=== PATIENT | male | born 1955 | race Caucasian/White ===

== ENCOUNTER 2021-05-25 09:46 | Day surgery (SDC) | payer OTHER ==
[2021-05-21 13:53] LABS: Absolute Lymphocytes (CBC) 2.2 K/uL (0.7-4.9); Basophils % 0.4 % (0-1.3); Hematocrit 46.2 % (39.6-49.0); Lymphocytes % 32.1 % (15.3-44.8); MPV 8.1 fL (7.6-11.3); RBC Red Blood Cell Count 5.17 M/uL (4.33-5.43)
[2021-05-21 14:05] LABS: BUN Blood Urea Nitrogen 8 mg/dL (7-18); Bicarbonate 27 mmol/L (21-32); Glucose Level 393 mg/dL (74-106); Potassium 3.7 mmol/L (3.5-5.1); Sodium Level 140 mmol/L (136-145)
[2021-05-21 14:17] LABS: Protime INR 1.02
[~2021-05-25 09:46] MED LIST: NA CHLORIDE 0.9% 500 ML ONE
[2021-05-25] MEDS ORDERED: LIDOCAINE 1% 20 ML MDV ONE (09:59)
[2021-05-25] MEDS ORDERED: HEPA 1000U/500MLS 1,000 UNIT/500 ML BAG IV ONE (09:59)
[2021-05-25] MEDS ORDERED: MIDAZOLAM HCL 2 MG/2 ML INJ ONE ×2 (10:27→10:45)
[2021-05-25] MEDS ORDERED: FENTANYL CITR 100 MCG/2 ML ONE (10:27)
[2021-05-25] MEDS ORDERED: NA CHLORIDE 0.9% 0 ML ONE (10:28)
[2021-05-25] MEDS ORDERED: ATROPINE SULF 1 MG/10 ML SYR IV ONE (10:28)
--- NOTE | 2021-05-25 10:45 | RAD REPORT ---
EXAM DESCRIPTION: RAD - Chest Single View - 05/25/2021 10:07 am CLINICAL HISTORY: pre-op for heart cath Chest pain. COMPARISON: No comparisons FINDINGS: Portable technique limits examination quality. The lungs are grossly clear. The heart is normal in size. No displaced fractures. IMPRESSION: No acute intrathoracic process suspected.
[2021-05-25 12:30] VITALS: TEMP 97
[2021-05-25 13:38] VITALS: BP 162/62; O2SAT 97
--- NOTE | 2021-05-25 14:27 | OP ---
Surgeon: Velasquez Reese MD Celery Stripper: Rhiannon Rondon. Procedure: Admitted to my service as an outpatient on 05/25/2021. Reason For Admission: Unstable angina. Reason for the catheterization was unstable angina, Procedures: Left heart catheterization, selective coronary arteriogram. Procedure In Detail: Mr. Dickens was brought to the corn lab technician as an outpatient, prepped and draped in routine sterile fashion. Given Versed and fentanyl for sedation. A 6-Nepali sheath introduced in the right common femoral artery successfully using the Seldinger technique and 10 cc of Xylocaine. Angiography there was normal. StarClose was used to close the case. Zita catheter left and right were used to cannulate the left main and right main respectively. He had a normal right coronary ar lashawn without any stenosis. He was codominant. There was some minor plaquing and calcification in th e left main, LAD, and circumflex without any focal stenosis. There were no complications. Blood Loss: 5 cc. Anesthesia: Total conscious sedation was 45 minutes. Postoperative Diagnosis: Mild coronary artery disease. Plan: Plan is for medical therapy. The patient will be at bedrest for 2 hours after his procedure. He will go home after that and see me in the office in 2 weeks. I am going to suggest that we start statin. ELGIN/CARLOS Voice ID: [id number] Report ID: [id number]
--- NOTE | 2021-05-26 11:23 | EKG ---
Test Date: 2021-05-25 Test Time: 09:29:18 Information Systems Planner: LUCRECIA MEASUREMENT RESULTS: Intervals: Rate: 63 NV: 166 QRSD: 88 QT: 424 QTc: 433 [place]: P: 55 NV: 166 QRS: 22 T: 48 INTERPRETIVE STATEMENTS: Normal sinus rhythm Normal ECG No previous ECG available for comparison Electronically Signed On 05-26-21 11:20:31 ECONOMIC DEVELOPER by Velasquez Reese
== END 2021-05-25 13:39 | disposition home or self-care (01) ==
LOC: CCL 09:46
DX: I25.110 Atherosclerotic heart disease of native coronary artery with unstable angina pectoris (principal); I10 Essential (primary) hypertension; E11.9 Type 2 diabetes mellitus without complications; G47.33 Obstructive sleep apnea (adult) (pediatric); E66.9 Obesity, unspecified; Z68.31 Body mass index [BMI] 31.0-31.9, adult; F17.210 Nicotine dependence, cigarettes, uncomplicated; Z20.822 Contact with and (suspected) exposure to COVID-19; Z82.49 Family history of ischemic heart disease and other diseases of the circulatory system
CPT/HCPCS: 93005; 85025; 80048; 36415; 85610; 85730; 71045; 93454; U0003; C1893; J2250 ×2; J3010; J7040; J1644; J0583

== ENCOUNTER 2022-06-17 15:06 | Emergency (ER) | payer OTHER ==
[2022-06-17] MEDS ORDERED: HYDROCODONE/APAP 7.5/325 MG TAB ONE (16:49)
[2022-06-17] MEDS ORDERED: IBUPROFEN 400 MG TAB ONE (16:49)
--- NOTE | 2022-06-17 17:04 | RAD REPORT ---
EXAM DESCRIPTION: RAD - Knee Right 3 View - 06/17/2022 4:59 pm CLINICAL HISTORY: PAIN COMPARISON: No comparisons FINDINGS: No bone or joint abnormality is detected.
--- NOTE | 2022-06-17 17:38 | EDPHYS ---
Physician Documentation [facility] Name: Geovani Dickens Age: 66 yrs Sex: Male : 1955 Arrival Date: 06/17/2022 Time: 15:07 Bed DIS5 Private MD: ED Physician Raymond Guzmán HPI: 06/17 16:25 This 66 yrs old Male presents to ER via Wheelchair with complaints of Knee cp Pain. 16:25 The patient presents with an injury, pain, that is acute. The complaints affect the cp right knee. Context: resulted from a mis-step, while descending stairs, the patient can partially bear weight, the patient is able to ambulate, with moderate difficulty, Problem is a result from a previous injury: No. Onset: The symptoms/episode began/occurred today. 16:25 Patient reports he was going down stairs when he felt right knee buckle and give out. cp C/o pain to back of knee since. Historical: - Allergies: 15:47 No Known Allergies; kb3 - PMHx: 15:47 Hypertensive disorder; NIDDM; kb3 - PSHx: 15:47 None; kb3 - Immunization history:: Adult Immunizations up to date, Client reports having NOT received the Covid vaccine. Last tetanus immunization: unknown. - Social history:: Smoking status: Patient denies any tobacco usage or history of. ROS: 16:30 MS/extremity: Positive for pain, tenderness, of the right knee. cp 16:30 Constitutional: Negative for body aches, chills, fever, poor PO intake. cp Exam: 16:40 Constitutional: The patient appears in no acute distress, alert, awake, non-toxic, well cp developed, well nourished. 16:40 Head/Face: Normocephalic, atraumatic. cp 16:40 Chest/axilla: Inspection: normal. 16:40 Cardiovascular: Rate: normal. 16:40 Respiratory: the patient does not display signs of respiratory distress, Respirations: normal. 16:40 Abdomen/GI: Exam negative for discomfort, distension, guarding, Inspection: abdomen appears normal. 16:40 Back: pain, is absent, ROM is normal. 16:40 Musculoskeletal/extremity: Extremities: grossly normal except: noted in the right knee: cp pain and tenderness noted posterior aspect of knee, pain with ROM, no swelling and/or effusion noted, overlying skin warm and dry. Vital Signs: 15:45 BP 144 / 57; Pulse 70; Resp 20; Temp 98.7; Pulse Ox 96% ; Weight 95.71 kg; Height 5 ft. kb3 9 in. (175.26 cm); Pain 2/10; 15:45 Body Mass Index 31.16 (95.71 kg, 175.26 cm) kb3 MDM: 15:54 Patient medically screened. cp 17:00 Differential diagnosis: dislocation, closed fracture, effusion, ligament injury. cp 17:37 Data reviewed: vital signs, nurses notes, radiologic studies, plain films. cp 17:37 Test interpretation: by ED physician or midlevel provider: plain radiologic studies. cp Counseling: I had a detailed discussion with the patient and/or guardian regarding: the historical points, exam findings, and any diagnostic results supporting the discharge/admit diagnosis, radiology results, to return to the emergency department if symptoms worsen or persist or if there are any questions or concerns that arise at home. Response to treatment: the patient's symptoms have markedly improved after treatment, and as a result, I will discharge patient. ED course: VSS. Recommend RICE. Patient has crutches to use and knee brace to wear. Has seen DR Reagan in the past for left knee pain. Recommend f/u with orth. 06/17 16:00 Order name: XRAY Knee RIGHT 3 view; Complete Time: 17:11 06/17 17:11 Interpretation: Report reviewed. cp Administered Medications: 16:50 Drug: Ibuprofen 800 mg Route: PO; ss 17:56 Follow up: Response: No adverse reaction ss 16:50 Drug: Hydrocodone-Acetaminophen (7.5 mg-325 mg) 1 tabs Route: PO; ss 17:56 Follow up: Response: No adverse reaction ss Disposition Summary: 06/17/22 17:37 Discharge Ordered Location: Home cp Problem: new cp Symptoms: have improved cp Condition: Stable cp Diagnosis - Pain in right knee cp Followup: cp - With: Luis A Reagan MD - When: 1 week - Reason: Recheck today's complaints Discharge Instructions: - Discharge Summary Sheet cp - Elastic Bandage and RICE Therapy cp - How to Use a Knee Brace cp - Acute Knee Pain, Adult cp Forms: - Medication Reconciliation Form cp - Thank You Letter cp - Antibiotic Education cp - Prescription Opioid Use cp Prescriptions: - Diclofenac Sodium 75 mg Oral Tablet Sustained Release - take 1 tablet by ORAL route 2 times per day; 30 tablet; Refills: 0, Product cp Selection Permitted Addendum: 06/21/2022 13:54 Co-signature as Attending Physician, Raymond Guzmán MD. r n Signatures: Dispatcher [employer] EDIN Raymond Guzmán MD MD rn Smirch, Shelby, RN RN ss Dario Blackwell PA PA cp Cat Montgomery RN RN kb3 Corrections: (The following items were deleted from the chart) 06/17 17:46 17:24 Crutches ordered. cp cp 17:56 17:24 Rony wrap-joint ordered. cp ss 06/18 02:11 06/17 16:05 This 66 yrs old Male presents to ER via Wheelchair with complaints cp of Knee Pain. cp
--- NOTE | 2022-06-17 17:38 | ER ---
Nurse's Notes [facility] Name: Geovani Dickens Age: 66 yrs Sex: Male : 1955 Arrival Date: 06/17/2022 Time: 15:07 Bed DIS5 Private MD: Diagnosis: Pain in right knee Presentation: 06/17 15:45 Chief complaint: Patient states: Pt reports he took a step and suddenly felt a tearing kb3 pain in his posterior right knee. Denies twisting or falling. Coronavirus screen: Vaccine status: Patient reports being unvaccinated. Client denies travel out of the [place] in the last 14 days. Ebola Screen: Patient negative for fever greater than or equal to 101.5 degrees Fahrenheit, and additional compatible Ebola Virus Disease symptoms Patient denies exposure to infectious person. Patient denies travel to an Ebola-affected area in the 21 days before illness onset. Initial Sepsis Screen: Does the patient meet any 2 criteria? No. Patient's initial sepsis screen is negative. Does the patient have a suspected source of infection? No. Patient's initial sepsis screen is negative. Risk Assessment: Do you want to hurt yourself or someone else? Patient reports no desire to harm self or others. Onset of symptoms was June 17, 2022 at 14:00. 15:45 Method Of Arrival: Wheelchair kb3 15:45 Acuity: LASHELL 4 kb3 Triage Assessment: 15:47 General: Appears in no apparent distress. Behavior is calm, cooperative. Pain: kb3 Complains of pain in posterior aspect of right knee and right knee Pain does not radiate. Pain. Historical: - Allergies: 15:47 No Known Allergies; kb3 - PMHx: 15:47 Hypertensive disorder; NIDDM; kb3 - PSHx: 15:47 None; kb3 - Immunization history:: Adult Immunizations up to date, Client reports having NOT received the Covid vaccine. Last tetanus immunization: unknown. - Social history:: Smoking status: Patient denies any tobacco usage or history of. Screenin:56 Abuse screen: Denies threats or abuse. Denies injuries from another. Nutritional ss screening: No deficits noted. Tuberculosis screening: Never had TB. Fall Risk None identified. Assessment: 17:56 General: Appears in no apparent distress. comfortable, Behavior is calm, cooperative. ss Pain: Complains of pain in right knee. Neuro: Level of Consciousness is awake, alert, obeys commands, Oriented to person, place, time, situation. Cardiovascular: Capillary refill is brisk in bilateral toes. Respiratory: Airway is patent Respiratory effort is even, unlabored, Respiratory pattern is regular, symmetrical. Derm: Skin is intact, is healthy with good turgor, Skin is dry, Skin is pink, warm \T\ dry. normal. Vital Signs: 15:45 BP 144 / 57; Pulse 70; Resp 20; Temp 98.7; Pulse Ox 96% ; Weight 95.71 kg; Height 5 ft. kb3 9 in. (175.26 cm); Pain 2/10; 15:45 Body Mass Index 31.16 (95.71 kg, 175.26 cm) kb3 ED Course: 15:07 Patient arrived in ED. rg4 15:12 Dario Blackwell PA is PHCP. cp 15:12 Raymond Guzmán MD is Attending Physician. cp 15:47 Triage completed. kb3 15:47 Arm band placed on right wrist. kb3 16:50 Isabela Wright, NEGRO is Primary Nurse. ss 17:00 XRAY Knee RIGHT 3 view In Process Unspecified. EDMS 17:37 Luis A Reagan MD is Referral Physician. cp 17:56 Patient has correct armband on for positive identification. ss 17:56 No provider procedures requiring assistance completed. Patient did not have IV access ss during this emergency room visit. Administered Medications: 16:50 Drug: Ibuprofen 800 mg Route: PO; ss 17:56 Follow up: Response: No adverse reaction ss 16:50 Drug: Hydrocodone-Acetaminophen (7.5 mg-325 mg) 1 tabs Route: PO; ss 17:56 Follow up: Response: No adverse reaction ss Medication: 17:56 VIS not applicable for this client. ss Outcome: 17:37 Discharge ordered by . cp 17:56 Discharged to home via wheelchair. ss 17:56 Condition: good 17:56 Discharge instructions given to patient, family, Instructed on discharge instructions, follow up and referral plans. medication usage, Demonstrated understanding of instructions, follow-up care, medications, Prescriptions given X 1. 17:57 Patient left the ED. ss Signatures: Dispatcher [employer] EDNJ Isabela Wright RN RN ss Dario Blackwell PA PA cp Garcia, Rubi rg4 Cat Montgomery, RN RN kb3
[2022-06-17 18:15] VITALS: BP 144/57; TEMP 98.7; O2SAT 96
== END 2022-06-17 17:57 | disposition home or self-care (01) ==
LOC: ER 15:06
DX: M25.561 Pain in right knee (principal)
CPT/HCPCS: 99283

== ENCOUNTER 2022-11-24 04:32 | Emergency (ER) | payer OTHER ==
[2022-11-24] MEDS ORDERED: NA CHLORIDE 0.9% 1,000 ML ONE (06:25)
[2022-11-24] MEDS ORDERED: predniSONE 20 MG TAB ONE (06:25)
[2022-11-24] MEDS ORDERED: CEFTRIAXONE 1000 MG/VIAL ONE (06:25)
[2022-11-24] MEDS ORDERED: METHYLPREDNISOLONE 125 MG INJ ONE ×2 (06:25→06:34)
[2022-11-24] MEDS ORDERED: FAMOTIDINE 20 MG/2 ML VIAL IV ONE (06:25)
[2022-11-24 06:31] LABS: Absolute Lymphocytes (CBC) 2.9 K/uL (0.7-4.9); Hematocrit 45.6 % (39.6-49.0); Lymphocytes % 27.3 % (15.3-44.8); MPV 7.7 fL (7.6-11.3); RBC Red Blood Cell Count 5.12 M/uL (4.33-5.43)
[2022-11-24 06:45] LABS: Albumin 3.4 g/dL (3.4-5.0); Bilirubin Total 0.4 mg/dL (0.2-1.0); Potassium 3.2 mEq/L (3.5-5.1); Protein, Total 6.7 g/dL (6.4-8.2)
--- NOTE | 2022-11-24 06:51 | ER ---
Nurse's Notes [facility] Name: Geovani Dickens Age: 67 yrs Sex: Male : 1955 Arrival Date: 11/24/2022 Time: 04:32 Bed 5 Private MD: Diagnosis: Adverse effect of unspecified drugs, medicaments and biological substances;Allergy status to unspecified drugs, medicaments and biological substances status;Oral mucositis (ulcerative);Other disturbances of oral epithelium, including tongue;Other lesions of oral mucosa;Hypokalemia Presentation: 11/24 04:44 Chief complaint: Patient states: mouth eye throat pain and swelling seen at [facility] treated for allergic reaction pt reports no improvement white discoloration noted to underside of tongue. Coronavirus screen: Vaccine status: Patient reports being unvaccinated. Ebola Screen: Patient negative for fever greater than or equal to 101.5 degrees Fahrenheit, and additional compatible Ebola Virus Disease symptoms. Initial Sepsis Screen: Does the patient meet any 2 criteria? No. Patient's initial sepsis screen is negative. Does the patient have a suspected source of infection? No. Patient's initial sepsis screen is negative. Risk Assessment: Do you want to hurt yourself or someone else? Patient reports no desire to harm self or others. 04:44 Method Of Arrival: Ambulatory 04:44 Acuity: LASHELL 3 kl Triage Assessment: 04:46 General: Appears uncomfortable, well groomed, well developed, Behavior is calm, kl cooperative. Pain: Complains of pain in throat mouth jawline. EENT: Eyes are tearing on inner aspect of conjunctiva of left eye Oral mucosa is moist. Poor dentition noted. Reports difficulty swallowing pain. Neuro: No deficits noted. Cardiovascular: No deficits noted. Respiratory: No deficits noted. GI: No deficits noted. No signs and/or symptoms were reported involving the gastrointestinal system. : No deficits noted. Historical: - Allergies: 04:46 Naproxen; kl - PMHx: 04:46 Hypertensive disorder; NIDDM; kl - Immunization history:: Adult Immunizations not up to date. - Social history:: Smoking status: Patient denies any tobacco usage or history of. Screenin:48 [facility] ED Fall Risk Assessment (Adult) History of falling in the last 3 months, kl including since admission No falls in past 3 months (0 pts) Confusion or Disorientation No (0 pts) Intoxicated or Sedated No (0 pts) Impaired Gait No (0 pts) Mobility Assist Device Used No (0 pt) Altered Elimination No (0 pt) Score/Fall Risk Level 0 - 2 = Low Risk Oriented to surroundings, Maintained a safe environment. Abuse screen: Denies threats or abuse. Nutritional screening: No deficits noted. Tuberculosis screening: No symptoms or risk factors identified. Assessment: 04:48 Respiratory: Airway is patent Trachea midline Respiratory effort is even, unlabored, kl Breath sounds are clear bilaterally. 04:48 EENT: Throat is pink. j Vital Signs: 04:44 BP 176 / 89; Pulse 84; Resp 18; Temp 98.2(TE); Pulse Ox 94% on R/A; Weight 96.16 kg kl (R); Height 5 ft. 9 in. ; Pain 8/10; 05:30 BP 169 / 78; Pulse 72; Resp 18; Pulse Ox 93% ; j7 06:33 BP 170 / 81; Pulse 70; Resp 16; Pulse Ox 96% ; jj7 07:12 BP 175 / 82; Pulse 73; Resp 17; Pulse Ox 95% ; jj7 04:44 Body Mass Index 31.31 (96.16 kg, 175.26 cm) 04:44 Pain Scale: Adult ED Course: 04:36 Patient arrived in ED. ja2 04:46 Triage completed. 04:48 Patient has correct armband on for positive identification. Call light in reach. Side kl rails up X2. Pulse ox on. NIBP on. 04:48 Arm band placed on right wrist. Patient placed in an exam room, in the treatment room, j on a stretcher. 05:18 Bentley Rondon RN is Primary Nurse. j7 06:00 Dario Robb MD is Attending Physician. ching 06:19 Inserted saline lock: 20 gauge in right antecubital area, using aseptic technique. as6 Blood collected. 06:20 CBC with Diff Sent. as6 06:20 Comprehensive Metabolic Panel Sent. as6 06:50 Arpan Molina DDS is Referral Physician. ching 07:17 No provider procedures requiring assistance completed. IV discontinued, intact, jj7 bleeding controlled, No redness/swelling at site. Pressure dressing applied. Administered Medications: 06:30 Drug: NS 0.9% IV 1000 ml Route: IV; Rate: 1 bolus; Site: right antecubital; jj7 07:00 Follow up: IV Status: Completed infusion; IV Intake: 500ml jj7 06:30 Drug: Rocephin IV 1 grams Route: IV; Rate: per protocol; Site: right antecubital; jj7 07:00 Follow up: IV Status: Completed infusion jj7 06:31 Drug: MethylPrednisoLONE IVP 125 mg Route: IVP; Site: right antecubital; jj7 07:05 Follow up: Response: No adverse reaction jj7 06:31 Drug: Famotidine IVP 40 mg Route: IVP; Site: right antecubital; jj7 07:05 Follow up: Response: No adverse reaction jj7 06:31 Drug: predniSONE PO 40 mg Route: PO; jj7 07:03 Follow up: Response: No adverse reaction jj7 07:03 Drug: GI Cocktail without - (Maalox PO Suspension 30 ml, Lidocaine Mucous jj7 Membrane Liquid 2 % 15 ml) Route: PO; 07:04 Follow up: Response: No adverse reaction jj7 07:03 Drug: Potassium PO Effervescent Tablet 25 mEq Route: PO; jj7 07:05 Follow up: Response: No adverse reaction jj7 07:14 Drug: Mupirocin Topical Ointment 2 % 1 application Route: Topical; Site: face; jj7 Medication: 07:18 VIS not applicable for this client. jj7 Intake: 07:00 IV: 500ml; Total: 500ml. jj7 Outcome: 06:51 Discharge ordered by MD. flower 07:17 Discharged to home ambulatory. jj7 07:17 Condition: good 07:17 Discharge instructions given to patient, Instructed on discharge instructions, follow up and referral plans. medication usage, Demonstrated understanding of instructions, follow-up care, medications, Prescriptions given X 6 07:20 Patient left the ED. jj7 Signatures: Dorota Leo RN Dario Lynn MD MD cha Alexander, Jessica ja2 Slawson, Ashby, RN RN as6 Bentley Rondon RN RN jj7
--- NOTE | 2022-11-24 06:51 | EDPHYS ---
Physician Documentation [facility] Name: Geovani Dickens Age: 67 yrs Sex: Male : 1955 Arrival Date: 11/24/2022 Time: 04:32 Bed 5 Private MD: ED Physician Dario Robb HPI: 11/24 06:07 This 67 yrs old Male presents to ER via Ambulatory with complaints of Eye ching Problem, Sore Throat, Lips Swelling. 06:07 The patient is experiencing pain, redness, The patient sustained None. Onset: The ching symptoms/episode began/occurred 3 day(s) ago. Duration: the symptoms are continuous. Aggravated by nothing. Alleviated by nothing. Associated signs and symptoms: Pertinent positives:. Patient wears glasses. Severity of symptoms: At their worst the symptoms were moderate in the emergency department the symptoms are unchanged. The patient has not experienced similar symptoms in the past. Historical: - Allergies: 04:46 Naproxen; kl - PMHx: 04:46 Hypertensive disorder; NIDDM; kl - Immunization history:: Adult Immunizations not up to date. - Social history:: Smoking status: Patient denies any tobacco usage or history of. ROS: 06:09 Constitutional: Negative for fever, chills, and weight loss, Neck: Negative for injury, ching pain, and swelling, Cardiovascular: Negative for chest pain, palpitations, and edema, Respiratory: Negative for shortness of breath, cough, wheezing, and pleuritic chest pain, Abdomen/GI: Negative for abdominal pain, nausea, vomiting, diarrhea, and constipation, Back: Negative for injury and pain, : Negative for injury, bleeding, discharge, and swelling, MS/Extremity: Negative for injury and deformity, Neuro: Negative for headache, weakness, numbness, tingling, and seizure, Psych: Negative for depression, anxiety, suicide ideation, homicidal ideation, and hallucinations, Allergy/Immunology: Negative for hives, rash, and allergies, Endocrine: Negative for neck swelling, polydipsia, polyuria, polyphagia, and marked weight changes, Hematologic/Lymphatic: Negative for swollen nodes, abnormal bleeding, and unusual bruising. 06:09 Skin: Positive for erythema, rash, swelling. Exam: 06:09 Constitutional: This is a well developed, well nourished patient who is awake, alert, ching and in no acute distress. ENT: Nares patent. No nasal discharge, no septal abnormalities noted. Tympanic membranes are normal and external auditory canals are clear. Oropharynx with no redness, swelling, or masses, exudates, or evidence of obstruction, uvula midline. Mucous membranes moist. Neck: Trachea midline, no thyromegaly or masses palpated, and no cervical lymphadenopathy. Supple, full range of motion without nuchal rigidity, or vertebral point tenderness. No Meningismus. Chest/axilla: Normal chest wall appearance and motion. Nontender with no deformity. No lesions are appreciated. Cardiovascular: Regular rate and rhythm with a normal S1 and S2. No gallops, murmurs, or rubs. Normal PMI, no JVD. No pulse deficits. Respiratory: Lungs have equal breath sounds bilaterally, clear to auscultation and percussion. No rales, rhonchi or wheezes noted. No increased work of breathing, no retractions or nasal flaring. Abdomen/GI: Soft, non-tender, with normal bowel sounds. No distension or tympany. No guarding or rebound. No evidence of tenderness throughout. Back: No spinal tenderness. No costovertebral tenderness. Full range of motion. Male : Normal genitalia with no discharge or lesions. Skin: Warm, dry with normal turgor. Normal color with no rashes, no lesions, and no evidence of cellulitis. MS/ Extremity: Pulses equal, no cyanosis. Neurovascular intact. Full, normal range of motion. Neuro: Awake and alert, GCS 15, oriented to person, place, time, and situation. Cranial nerves II-XII grossly intact. Motor strength 5/5 in all extremities. Sensory grossly intact. Cerebellar exam normal. Normal gait. Psych: Awake, alert, with orientation to person, place and time. Behavior, mood, and affect are within normal limits. 06:09 Head/face: Noted is rash. 06:09 ENT: Mouth: Oral mucosa: moist, noted to have obvious stomatitis, noted to have ulceration(s), Gums: noted to have cellulitis, Tongue: tender, displays stomatitis. Vital Signs: 04:44 BP 176 / 89; Pulse 84; Resp 18; Temp 98.2(TE); Pulse Ox 94% on R/A; Weight 96.16 kg kl (R); Height 5 ft. 9 in. ; Pain 8/10; 05:30 BP 169 / 78; Pulse 72; Resp 18; Pulse Ox 93% ; jj7 06:33 BP 170 / 81; Pulse 70; Resp 16; Pulse Ox 96% ; j7 07:12 BP 175 / 82; Pulse 73; Resp 17; Pulse Ox 95% ; jj7 04:44 Body Mass Index 31.31 (96.16 kg, 175.26 cm) kl 04:44 Pain Scale: Adult kl MDM: 06:00 Patient medically screened. [facility] 06:12 Differential diagnosis: allergic reaction. Data reviewed: vital signs, nurses notes, [facility] lab test result(s). Consideration of Admission/Observation Escalation of care including admission/observation considered. I considered the following discharge prescriptions or medication management in the emergency department Medications were administered in the Emergency Department. See MAR. Test considered but Not performed: CT: no ct. Historians other than the Patient: Spouse/Significant Other: informed. Care significantly affected by the following chronic conditions: Diabetes, Hypertension. 11/24 06:07 Order name: CBC with Diff; Complete Time: 06:43 [facility] 11/24 06:07 Order name: Comprehensive Metabolic Panel; Complete Time: 06:48 [facility] 11/24 06:49 Order name: PO challenge: gatorade; Complete Time: 07:03 [facility] Administered Medications: 06:30 Drug: NS 0.9% IV 1000 ml Route: IV; Rate: 1 bolus; Site: right antecubital; j 07:00 Follow up: IV Status: Completed infusion; IV Intake: 500ml j 06:30 Drug: Rocephin IV 1 grams Route: IV; Rate: per protocol; Site: right antecubital; j 07:00 Follow up: IV Status: Completed infusion j7 06:31 Drug: MethylPrednisoLONE IVP 125 mg Route: IVP; Site: right antecubital; jj7 07:05 Follow up: Response: No adverse reaction j7 06:31 Drug: Famotidine IVP 40 mg Route: IVP; Site: right antecubital; j7 07:05 Follow up: Response: No adverse reaction j7 06:31 Drug: predniSONE PO 40 mg Route: PO; jj7 07:03 Follow up: Response: No adverse reaction jj7 07:03 Drug: GI Cocktail without - (Maalox PO Suspension 30 ml, Lidocaine Mucous jj7 Membrane Liquid 2 % 15 ml) Route: PO; 07:04 Follow up: Response: No adverse reaction jj7 07:03 Drug: Potassium PO Effervescent Tablet 25 mEq Route: PO; jj7 07:05 Follow up: Response: No adverse reaction jj7 07:14 Drug: Mupirocin Topical Ointment 2 % 1 application Route: Topical; Site: face; jj7 Disposition Summary: 11/24/22 06:51 Discharge Ordered Location: Home ching Problem: new ching Symptoms: have improved ching Condition: Stable ching Diagnosis - Adverse effect of unspecified drugs, medicaments and biological substances ching - Allergy status to unspecified drugs, medicaments and biological substances status ching - Oral mucositis (ulcerative) ching - Other disturbances of oral epithelium, including tongue ching - Other lesions of oral mucosa ching - Hypokalemia ching Followup: ching - With: Private Physician - When: 2 - 3 days - Reason: Recheck today's complaints, Continuance of care, Re-evaluation by your physician Followup: ching - With: - When: 2 - 3 days - Reason: Recheck today's complaints, Re-evaluation by your physician Discharge Instructions: - Discharge Summary Sheet ching - Potassium Content of Foods ching - Drug Allergy, Wrfe-ap-Xmeg ching - Drug Allergy ching - Mouth Laceration, Vsgh-gv-Rety ching - Jeffery-Alcon Syndrome ching - Hypokalemia [facility] Forms: - Medication Reconciliation Form ching - Thank You Letter ching - Antibiotic Education ching - Prescription Opioid Use [facility] Prescriptions: - Maalox Maximum Strength 400-400-40 mg/5 mL Oral suspension - take 15 milliliter by ORAL route 4 times per day; 250 milliliter; Refills: 0, [facility] Product Selection Permitted - Centany 2 % Topical ointment - apply 1 application by TOPICAL route 4 times per day; 15 gram tube; Refills: 0, [facility] Product Selection Permitted - Augmentin 875-125 mg Oral Tablet - take 1 tablet by ORAL route every 12 hours for 10 days; 20 tablet; Refills: 0, [facility] Product Selection Permitted - Benadryl 25 mg Oral Capsule - take 2 capsule by ORAL route every 6 hours As needed; 50 tablet; Refills: 0, [facility] Product Selection Permitted - Pepcid 20 mg Oral Tablet - take 1 tablet by ORAL route every 12 hours for 21 days; 42 tablet; Refills: 0, ching Product Selection Permitted - Prednisone 20 mg Oral Tablet - take 2 tablets by ORAL route once daily for 5 days; 10 tablet; Refills: 0, ching Product Selection Permitted Signatures: Dispatcher [employer] Dorota Link, RN Dario Lynn MD MD cha Johnson, Juwairiyah, RN RN jj7
[2022-11-24] MEDS ORDERED: MAGNES/ALUMIN/SIMET 30ML UCUP ONE (07:03)
[2022-11-24] MEDS ORDERED: MUPIROCIN 2% OINT 22GM TUBE TOP ONE (07:04)
[2022-11-24] MEDS ORDERED: LIDOCAINE VISCOUS 2% SOLN 15 ML UDC ONE (07:04)
[2022-11-24] MEDS ORDERED: POTASSIUM 25 MEQ EFFERV TAB ONE (07:04)
[2022-11-24 07:30] VITALS: TEMP 98.2
[2022-11-24 07:47] VITALS: BP 175/82; O2SAT 95
== END 2022-11-24 07:20 | disposition home or self-care (01) ==
LOC: ER 04:32
DX: K12.30 Oral mucositis (ulcerative), unspecified (principal); K13.79 Other lesions of oral mucosa; K13.29 Other disturbances of oral epithelium, including tongue; E87.6 Hypokalemia; T50.905A Adverse effect of unspecified drugs, medicaments and biological substances, initial encounter; Z88.6 Allergy status to analgesic agent; E11.9 Type 2 diabetes mellitus without complications; I10 Essential (primary) hypertension
CPT/HCPCS: 96365; 85025; 36415; 80053; 96375; 99284; J7512; J2930; J7030; J0696

== ENCOUNTER 2023-11-19 15:12 | Observation (INO) | payer OTHER ==
--- OUTSIDE RECORDS SUMMARY | 2023-11-19 15:16 | XMS REPORT | Continuity of Care Document ---
Author Name Unknown Address [address] [place] [address]. [address] [id number] [facility] Address [address] [facility]. [address] [place] [address] Care Team Providers Care Search Marketing Coordinator Name Role Phone Unavailable Unavailable Unavailable Encounters Start Date/Time End Date/Time Encounter Type Admission Type Attending Clinicians Care Facility Care Department Encounter ID Source 2022-11-29 09:05:02 [id number] [facility]
[2023-11-19 16:35] LABS: Absolute Basophils 0.1 K/uL (0-0.5); Absolute Lymphocytes (CBC) 1.6 K/uL (0.7-4.9); Absolute Monocytes 0.6 K/uL (0.1-1.3); Absolute Neutrophil 6.3 K/uL (1.8-8.0); Basophils % 0.7 % (0-1.3); Eosinophils % 0.6 % (0-4.4); Hematocrit 45.8 % (39.6-49.0); Hemoglobin 15.7 g/dL (13.6-17.9); Lymphocytes % 18.6 % (15.3-44.8); MCH 30.4 pg (27.0-35.0); MCHC 34.3 g/dL (32.0-36.0); MCV 88.6 fL (80-100); MPV 8.5 fL (7.6-11.3); Monocytes % 6.8 % (3.3-12.3); Neutrophils % 73.3 % (41.7-73.7); Platelets 260 thou/uL (152-406); RBC Red Blood Cell Count 5.18 M/uL (4.33-5.43)
[2023-11-19 16:49] LABS: PT Prothrombin Time 11.5 SECONDS (9.5-12.5); Protime INR 1.05
--- NOTE | 2023-11-19 16:57 | RAD REPORT ---
EXAM DESCRIPTION: CT - Head Brain Wo Cont - 11/19/2023 4:40 pm CLINICAL HISTORY: Syncope COMPARISON: none TECHNIQUE: Computed axial tomography of the head was obtained. IV contrast was not requested. All CT scans are performed using dose optimization technique as appropriate and may include automated exposure control or mA/KV adjustment according to patient size. FINDINGS: An intracranial bleed is not seen The ventricles are normal in caliber No significant hypodense areas within the brain visualized No extra-axial fluid collection is noted. Fluid within the sinuses/ mastoids is not seen IMPRESSION: No acute intracranial abnormality is seen If patient's symptoms persist MRI of the brain would be recommended
[2023-11-19 17:09] LABS: Albumin 3.6 g/dL (3.4-5.0); Albumin/Globulin Ratio 1.2 (1.1-1.8); Anion Gap 12.7 mEq/L (5.0-15.0); Bilirubin Direct 0.2 mg/dL (0-0.2); Bilirubin Indirect, Calculated 0.6 mg/dL (0.2-0.8); Bilirubin Total 0.8 mg/dL (0.2-1.0); Globulin 3.1 g/dL (2.3-3.5); Magnesium 2.2 mg/dL (1.6-2.4); Potassium 3.7 mEq/L (3.5-5.1); Protein, Total 6.7 g/dL (6.4-8.2); Troponin High Sensitivity 3.8 pg/mL (<58.9)
--- NOTE | 2023-11-19 17:23 | RAD REPORT ---
EXAM DESCRIPTION: [place] Single View11/19/2023 5:00 pm CLINICAL HISTORY: Chest pain COMPARISON: 2020 FINDINGS: The lungs appear clear of acute infiltrate. The heart is normal size IMPRESSION: No acute abnormalities displayed
--- NOTE | 2023-11-19 17:27 | ER ---
Nurse's Notes [facility] Name: Geovani Dickens Age: 68 yrs Sex: Male : 1955 Arrival Date: 11/19/2023 Time: 15:12 Bed 7 Private MD: Diagnosis: Acute kidney failure, unspecified;Type 2 diabetes mellitus with hyperglycemia Presentation: 11/18 15:25 Note Wants to use restroom before triage. nj1 15:30 Chief complaint: Patient states: "feel like im going to pass out" Was eating lunch and nj1 at the end started having neck pain. Coronavirus screen: Vaccine status: Patient reports being unvaccinated. Ebola Screen: Patient denies travel to an Ebola-affected area in the 21 days before illness onset. Initial Sepsis Screen: Does the patient meet any 2 criteria? HR > 90 bpm. No. Patient's initial sepsis screen is negative. Does the patient have a suspected source of infection? No. Patient's initial sepsis screen is negative. Risk Assessment: Do you want to hurt yourself or someone else? Patient reports no desire to harm self or others. Onset of symptoms was November 19, 2023. 15:30 Method Of Arrival: Wheelchair nj1 15:30 Acuity: LASHELL 3 nj1 Triage Assessment: 15:34 General: Appears in no apparent distress. comfortable, Behavior is calm, cooperative, nj1 appropriate for age. Pain: Denies pain. Neuro: Reports weakness. Historical: - Allergies: 15:33 Naproxen; nj1 15:33 Aleve; nj1 - PMHx: 15:33 Hypertensive disorder; NIDDM; nj1 - Immunization history:: Client reports having NOT received the Covid vaccine. - Infectious Disease History:: Denies. - Social history:: Smoking status: Patient denies any tobacco usage or history of. Screenin:08 [facility] ED Fall Risk Assessment (Adult) History of falling in the last 3 months, ss including since admission Yes- physiologic fall (2 pts) Confusion or Disorientation No (0 pts) Intoxicated or Sedated No (0 pts) Impaired Gait No (0 pts) Mobility Assist Device Used No (0 pt) Altered Elimination No (0 pt) Score/Fall Risk Level 0 - 2 = Low Risk Maintained a safe environment. Abuse screen: Denies threats or abuse. Denies injuries from another. Nutritional screening: No deficits noted. Tuberculosis screening: Never had TB. Assessment: 16:00 General: Appears in no apparent distress. comfortable, Behavior is calm, cooperative, ss Denies fever, feeling ill, fatigue, chills. Pain: Denies pain. Neuro: Level of Consciousness is awake, alert, obeys commands, Oriented to person, place, time, situation, Imaging Manager are equal bilaterally Moves all extremities. Full function Gait is steady, Speech is normal, Facial symmetry appears normal. Respiratory: Airway is patent Respiratory effort is even, unlabored, Respiratory pattern is regular, symmetrical. GI: Patient currently denies diarrhea, nausea, vomiting. : No signs and/or symptoms were reported regarding the genitourinary system. Derm: Skin is intact, is healthy with good turgor, Skin is dry, Skin is pink, warm \\T\\ dry. normal. 17:00 Reassessment: Patient and/or family updated on plan of care and expected duration. Pain ss level reassessed. Patient is alert, oriented x 3, equal unlabored respirations, skin warm/dry/pink. 18:00 Reassessment: Patient appears in no apparent distress at this time. No changes from previously documented assessment. 19:36 Reassessment: faxed report to second floor. Vital Signs: 15:30 BP 98 / 53; Pulse 94; Resp 17; Temp 98.4; Pulse Ox 95% on R/A; Weight 95.25 kg; Height nj1 5 ft. 9 in. ; 19:29 BP 122 / 59; Pulse 85; Resp 16; Pulse Ox 95% on R/A; Pain 0/10; 19:30 BP 154 / 83; Pulse 89; Resp 16; Pulse Ox 95% on R/A; km8 15:30 Body Mass Index 31.01 (95.25 kg, 175.26 cm) nj1 19:29 Pain Scale: Adult ED Course: 15:17 Patient arrived in ED. ra3 15:33 Triage completed. nj1 15:34 Arm band placed on right wrist. nj1 15:39 [facility] sb4 15:39 Dario Robb MD is Attending Physician. sb4 15:50 Isabela Dickey RN is Primary Nurse. ss 16:30 Inserted saline lock: 20 gauge in right antecubital area, using aseptic technique. ld1 Blood collected. 16:41 CT Head Brain wo Cont In Process Unspecified. EDMS 17:02 Chest Single View XRAY In Process Unspecified. EDMS 17:17 Notified Nurse Practitioner and/or Physician Tufting Supervisor of a critical lab result(s), ll1 glucose 532. 17:26 Jennifer Alex MD is Hospitalizing Provider. sb4 18:08 Patient has correct armband on for positive identification. Bed in low position. ss Administered Medications: 18:10 Drug: NS 0.9% IV 250 ml IV at bolus once Route: IV; Rate: bolus; Site: right ld1 antecubital; 18:10 Drug: Insulin Regular Human IVP 5 units IVP once {Co-Signature: todd (Isabela Dickey RN).} Route: IVP; Site: right antecubital; 18:10 Drug: Insulin Regular Human Sub-Q 5 units Sub-Q once {Co-Signature: todd (ant Dickey RN).} Route: Sub-Q; Site: left lower abdomen; 18:28 Drug: NS 0.9% IV 1000 ml IV at 75 ml/hr continuous Route: IV; Rate: 75 ml/hr; Site: ld1 right antecubital; Outcome: 17:27 Decision to Hospitalize by Provider. sb4 20:31 Patient left the ED. cp4 Signatures: Dispatcher [employer] EDND Isabela Dickey RN RN ss Kate Leo RN RN 1 Jammie Gavin RN RN ld1 Ami Welch, PA-C PA-C sb4 Pretty Costa, RN RN [email or web address] Rhiannon Mary cp4 Niurka Sloan RN RN km8 Inez Dawson 3 Isabela Dickey RN ss
--- NOTE | 2023-11-19 17:27 | EDPHYS ---
Physician Documentation [facility] Name: Geovani Dickens Age: 68 yrs Sex: Male : 1955 Arrival Date: 11/19/2023 Time: 15:12 Bed 7 Private MD: AIMEE Physician Dario Robb HPI: 11/18 16:32 This 68 yrs old Male presents to ER via Wheelchair with complaints of Near sb4 Syncope. 16:50 patient states that he was eating lunch this afternoon when he started feeling a pain sb4 in the back of his neck and like he was going to pass out. states he did take his meds on an empty stomach this morning, when he normally takes them on a full stomach. states meds were adjusted 2 months ago. no reported chest pain, shortness of breath, dizziness, weakness. Historical: - Allergies: 15:33 Naproxen; nj1 15:33 Aleve; nj1 - PMHx: 15:33 Hypertensive disorder; NIDDM; nj1 - Immunization history:: Client reports having NOT received the Covid vaccine. - Infectious Disease History:: Denies. - Social history:: Smoking status: Patient denies any tobacco usage or history of. ROS: 16:51 Constitutional: Negative for fever, chills, and weight loss, sb4 16:51 Neuro: Positive for near syncope, 16:51 All other systems are negative, Exam: 16:51 Constitutional: This is a well developed, well nourished patient who is awake, alert, sb4 and in no acute distress. Head/Face: Normocephalic, atraumatic. Eyes: Extra-ocular motions intact. Periorbital areas with no swelling, redness, or edema. ENT: Mucous membranes moist. Cardiovascular: Regular rate and rhythm with a normal S1 and S2. Respiratory: Lungs have equal breath sounds bilaterally, clear to auscultation and percussion. No rales, rhonchi or wheezes noted. No increased work of breathing, no retractions or nasal flaring. Abdomen/GI: Soft, non-tender, no distension. Skin: Warm, dry with normal turgor. Normal color with no rashes, no lesions, and no evidence of cellulitis. MS/ Extremity: Pulses equal, no cyanosis. Neurovascular intact. Full, normal range of motion. Neuro: Awake and alert, GCS 15, oriented to person, place, time, and situation. Motor strength 5/5 in all extremities. Sensory grossly intact. Vital Signs: 15:30 BP 98 / 53; Pulse 94; Resp 17; Temp 98.4; Pulse Ox 95% on R/A; Weight 95.25 kg; Height nj1 5 ft. 9 in. ; 19:29 BP 122 / 59; Pulse 85; Resp 16; Pulse Ox 95% on R/A; Pain 0/10; ss 19:30 BP 154 / 83; Pulse 89; Resp 16; Pulse Ox 95% on R/A; km8 15:30 Body Mass Index 31.01 (95.25 kg, 175.26 cm) nj1 19:29 Pain Scale: Adult ss MDM: 15:42 Patient medically screened. sb4 17:25 Data reviewed: vital signs, nurses notes, lab test result(s), EKG, radiologic studies, sb4 and as a result, I will admit patient. Consideration of Admission/Observation Patient was admitted/placed on observation. Counseling: I had a detailed discussion with the patient and/or guardian regarding the historical points, exam findings, and any diagnostic results supporting the discharge/admit diagnosis, lab results, radiology results, the need for further work-up and treatment in the hospital. 11/18 16:03 Order name: Basic Metabolic Panel; Complete Time: 17:17 sb4 11/18 16:03 Order name: CBC with Diff; Complete Time: 16:39 sb4 11/18 16:03 Order name: Hepatic Function; Complete Time: 17:17 sb4 11/18 16:03 Order name: Magnesium; Complete Time: 17:17 sb4 11/18 16:03 Order name: Protime (+inr); Complete Time: 16:49 sb4 11/18 16:03 Order name: Ptt, Activated; Complete Time: 16:49 sb4 11/18 16:03 Order name: Troponin High Sensitivity; Complete Time: 17:17 sb4 11/18 18:08 Order name: CBC with Automated Diff EDMS 11/18 18:08 Order name: CBC with Automated Diff EDMS 11/18 18:08 Order name: Comprehensive Metabolic Panel EDMS 11/18 18:08 Order name: Comprehensive Metabolic Panel EDMS 11/18 18:08 Order name: Hemoglobin A1c EDMS 11/18 18:08 Order name: Hemoglobin A1c [facility] 11/18 19:07 Order name: Glucose, Ancillary Testing EDVT 11/18 16:03 Order name: CT Head Brain wo Cont; Complete Time: 16:59 sb4 11/18 16:03 Order name: Chest Single View XRAY; Complete Time: 17:25 sb4 11/18 16:03 Order name: Cardiac monitoring; Complete Time: 16:20 sb4 11/18 16:03 Order name: EKG - Nurse/Tech; Complete Time: 16:20 sb4 11/18 16:03 Order name: IV Saline Lock; Complete Time: 16:30 sb4 11/18 16:03 Order name: Labs collected and sent; Complete Time: 16:30 sb4 11/18 16:03 Order name: O2 Per Protocol; Complete Time: 16:16 sb4 11/18 16:03 Order name: O2 Sat Monitoring; Complete Time: 16:16 sb4 EC:33 Rate is 84 beats/min. Rhythm is regular, Normal Sinus Rhythm. WV interval is normal at sb4 162 msec. QRS interval is normal at 88 msec. QT interval is normal at 398 msec. No Q waves. T waves are Normal. No ST changes noted. Clinical impression: No evidence of ischemia. Interpreted by me. Reviewed by me. Administered Medications: 18:10 Drug: NS 0.9% IV 250 ml IV at bolus once Route: IV; Rate: bolus; Site: right ld1 antecubital; 18:10 Drug: Insulin Regular Human IVP 5 units IVP once {Co-Signature: todd (Isabela Dickey RN).} Route: IVP; Site: right antecubital; 18:10 Drug: Insulin Regular Human Sub-Q 5 units Sub-Q once {Co-Signature: todd (ant Dickey RN).} Route: Sub-Q; Site: left lower abdomen; 18:28 Drug: NS 0.9% IV 1000 ml IV at 75 ml/hr continuous Route: IV; Rate: 75 ml/hr; Site: ld1 right antecubital; Disposition Summary: 11/19/23 17:27 Hospitalization Ordered Notes: Hospitalization Status: Inpatient Admission sb4 Provider: Jennifer Alex Location: Telemetry/[facility]Sur (Inpatient) sb4 Condition: Fair sb4 Problem: new sb4 Symptoms: are unchanged sb4 Bed/Room Type: Standard sb4 Room Assignment: 203(11/19/23 19:30) rv1 Diagnosis - Acute kidney failure, unspecified sb4 - Type 2 diabetes mellitus with hyperglycemia sb4 Forms: - Medication Reconciliation Form sb4 - SBAR form sb4 - Leadership Thank You Letter sb4 Signatures: Dispatcher [employer] EDMS Jammie Gavin RN RN ld1 Ami Welch PA-C PA-C sb4 Coretta Jerome rv1 Pretty Costa RN RN nj1 Isabela Dickey RN ss Corrections: (The following items were deleted from the chart) 16:04 16:04 Chest Single View+RAD.RAD.BRZ ordered. EDMS EDMS 19:30 17:27 sb4 rv1
[2023-11-19] MEDS ORDERED: INSULIN REGULAR (HUMAN) 100 UNIT/ML ONE (18:02)
[2023-11-19] MEDS ORDERED: NA CHLORIDE 0.9% 250 ML ONE (18:02)
[2023-11-19] MEDS ORDERED: MORPHINE 2 MG/ML SYR IV PRN (18:04)
[2023-11-19] MEDS ORDERED: ONDANSETRON 4 MG/2 ML VIAL IV PRN (18:04)
[2023-11-19] MEDS ORDERED: ACETAMINOPHEN 500 MG TAB PO PRN (18:04)
--- NOTE | 2023-11-19 18:16 | P.HP ---
Certification for Inpatient Patient admitted to: Observation With expected LOS: <2 Midnights Practitioner: I am a practitioner with admitting privileges, knowledge of patient current condition, hospital course, and medical plan of care. Services: Services provided to patient in accordance with Admission requirements found in Title 42 Section 412.3 of the Code of Federal Regulations Patient History Date of Service: 11/19/23 Reason for admission: Hyperglycemia History of Present Illness: 68 yrs old Male with past medical history hypertension, diabetes, hyperlipidemia who came to ER with generalized weakness and presyncopal episodes started this afternoon. Patient states that he was eating lunch this afternoon when he started feeling a pain in the back of his neck and like he was going to pass out. Denies any chest pain or shortness of breath. Denies any palpitation. Associated with dizziness, weakness. No fever or chills. No sick contacts. Denies any abdominal pain. Denies any dysuria. Patient was examined and assessed in the ER and was found to be having acute kidney injury along with hyperglycemia and was admitted for further management Allergies naproxen [From Aleve] Adverse Reaction (Verified 11/19/23 20:48) Anaphylaxis Home medications list reviewed: Yes - Past Medical/Surgical History Past Medical History: Reviewed- Non-Contributory -: DM, HTN Past Surgical History: Reviewed- Non-Contributory - Family History Family History: Reviewed- Non-Contributory - Social History Smoking Status: Never smoker Review of Systems 10-point ROS is otherwise unremarkable Physical Examination - Vital Signs Temperature: 98.2 F Blood Pressure: 98/53 Pulse: 90 Respirations: 18 Pulse Ox (%): 94 - Physical Exam General: Alert, In no apparent distress, Oriented x3 HEENT: Atraumatic, Normocephalic Neck: Supple, JVD not distended Respiratory: Clear to auscultation bilaterally, Normal air movement Cardiovascular: Regular rate/rhythm, Normal S1 S2 Capillary refill: <2 Seconds Gastrointestinal: Soft and benign, W/out hepatosplenomegaly Musculoskeletal: No clubbing, No swelling Integumentary: No rashes, No breakdown, No tenderness/swelling Neurological: Normal speech, Normal strength at 5/5 x4 extr Lymphatics: No axilla or inguinal lymphadenopathy - Studies Laboratory Data (last 24 hrs) 11/19/23 11/19/23 11/19/23 16:21 16:21 16:21 WBC 8.60 Hgb 15.7 Hct 45.8 Plt Count 260 PT 11.5 INR 1.05 APTT 36.0 Sodium 133 L Potassium 3.7 BUN 40 H Creatinine 1.53 H Glucose 532 H* Magnesium 2.2 Total Bilirubin 0.8 AST 6 L ALT 28 Alkaline Phosphatase 80 Assessment and Plan - Problems (Diagnosis) (1) Uncontrolled diabetes mellitus with hyperglycemia Current Visit: Yes Status: Acute Plan: Uncontrolled diabetes with hyperglycemia Blood sugars was 532 at the time of admission Started on insulin sliding scale Added on basal insulin Will get an A1c in a.m. Reiterated the need for control of blood sugar properly Syncope Possibly related to hyperglycemia and dehydration CT head was negative for any acute changes Monitor closely on telemetry Acute kidney injury Patient stated his baseline creatinine is normal Started on IV hydration Renal parameters monitor Electrolytes monitor replace accordingly Hypertension Monitor closely monitor telemetry Titrate antihypertensives GI/DVT prophylaxis Advanced directive full code Discharge Plan: Home Plan to discharge in: 48 Hours - Advance Directives Does patient have a Living Will: No Does patient have a Durable POA for Healthcare: No - Code Status/Comfort Care Code Status: Full Code Time Spent Managing Pts Care (In Minutes): 48
[2023-11-19] MEDS: NA CHLORIDE 0.9% 1,000 ML IV SCH (20:45)
[2023-11-19 20:56] VITALS: O2SAT 95; BMI 29.7
[2023-11-19] MEDS: INSULIN GLARGINE 100 UNIT/ML SQ SCH (21:00)
[2023-11-19] MEDS: INSULIN REGULAR (HUMAN) 100 UNIT/ML SQ SCH (22:26)
[2023-11-19] MEDS: ROPINIROLE HCL 1 MG TAB PO ONE (23:49)
[2023-11-20 07:32] LABS: Absolute Eosinophils 0.1 K/uL (0-0.5); Absolute Lymphocytes (CBC) 2.2 K/uL (0.7-4.9); Absolute Monocytes 0.5 K/uL (0.1-1.3); Absolute Neutrophil 3.7 K/uL (1.8-8.0); Basophils % 0.5 % (0-1.3); Eosinophils % 2.1 % (0-4.4); Hematocrit 45.3 % (39.6-49.0); Hemoglobin 15.5 g/dL (13.6-17.9); Lymphocytes % 34.1 % (15.3-44.8); MCH 30.6 pg (27.0-35.0); MCHC 34.3 g/dL (32.0-36.0); MCV 89.2 fL (80-100); MPV 8.5 fL (7.6-11.3); Monocytes % 7.4 % (3.3-12.3); Neutrophils % 55.9 % (41.7-73.7); Platelets 223 thou/uL (152-406); RBC Red Blood Cell Count 5.08 M/uL (4.33-5.43); Red Cell Distribution Width 14.2 % (12.1-15.2)
[2023-11-20] MEDS ORDERED: GLUCAGON 1 MG/VIAL IM PRN (07:38)
[2023-11-20] MEDS ORDERED: D50W 25 GM/50 ML SYRINGE IV PRN (07:38)
[2023-11-20 07:40] LABS: ALT/SGPT 25 U/L (16-61); Albumin 3.6 g/dL (3.4-5.0); Albumin/Globulin Ratio 1.2 (1.1-1.8); Alkaline Phosphatase 76 U/L (45-117); Anion Gap 5.6 mEq/L (5.0-15.0); BUN Blood Urea Nitrogen 30 mg/dL (7-18); Bicarbonate 31 mEq/L (21-32); Bilirubin Total 0.7 mg/dL (0.2-1.0); Globulin 2.9 g/dL (2.3-3.5); Glomerular Filtration Rate 95 ml/min (=/>90); Glucose Level 220 mg/dL (74-106); Potassium 3.6 mEq/L (3.5-5.1); Protein, Total 6.5 g/dL (6.4-8.2); Sodium Level 140 mEq/L (136-145)
[2023-11-20 07:42] LABS: AST/SGOT < 4 U/L (15-37)
[2023-11-20] MEDS ORDERED: D10W 125 ML IV PRN (07:58)
--- NOTE | 2023-11-20 08:12 | P.PN ---
Subjective Date of Service: 11/20/23 Chief Complaint: Hyperglycemia Subjective: Improving ("I feel a lot better") <Radha Rinaldi Barrett - Last Filed: 11/20/23 08:08> Date of Service: 11/22/23 <Pinky Dick Shen - Last Filed: 11/22/23 22:27> Review of Systems 10-point ROS is otherwise unremarkable General: As per HPI Neurological: As per HPI <RinaldiShanellecary Hyde - Last Filed: 11/20/23 08:08> Physical Examination - Vital Signs Temperature: 97.5 F Blood Pressure: 140/67 Pulse: 73 Respirations: 15 Pulse Ox (%): 94 - Physical Exam General: Alert, In no apparent distress, Oriented x3 HEENT: Atraumatic, Normocephalic Respiratory: Normal air movement Cardiovascular: Normal pulses, Regular rate/rhythm Capillary refill: <2 Seconds Gastrointestinal: Soft and benign Musculoskeletal: No clubbing, No swelling Integumentary: No rashes Neurological: Normal speech Lymphatics: No axilla or inguinal lymphadenopathy External genitalia: Deferred Rectal: Deferred - Studies Laboratory Data (last 24 hrs) 11/19/23 11/19/23 11/19/23 16:21 16:21 16:21 WBC 8.60 Hgb 15.7 Hct 45.8 Plt Count 260 PT 11.5 INR 1.05 APTT 36.0 Sodium 133 L Potassium 3.7 BUN 40 H Creatinine 1.53 H Glucose 532 H* Magnesium 2.2 Total Bilirubin 0.8 AST 6 L ALT 28 Alkaline Phosphatase 80 <Radha Rinaldi Barrett - Last Filed: 11/20/23 08:08> Assessment And Plan - Plan - Problems (Diagnosis) (1) Uncontrolled diabetes mellitus with hyperglycemia Current Visit: Yes Status: Acute Plan: Uncontrolled diabetes with hyperglycemia Blood sugars was 532 at the time of admission Started on insulin sliding scale Added on basal insulin Will get an A1c in a.m. Reiterated the need for control of blood sugar properly Syncope Possibly related to hyperglycemia and dehydration CT head was negative for any acute changes Monitor closely on telemetry Acute kidney injury Patient stated his baseline creatinine is normal Started on IV hydration Renal parameters monitor Electrolytes monitor replace accordingly Hypertension Monitor closely monitor telemetry Titrate antihypertensives GI/DVT prophylaxis Advanced directive full code May dc later today, depending on DM education, addition of basal insulin for home Discharge Plan: Home Plan to discharge in: 24 Hours - Code Status/Comfort Care Code Status Assessed: Yes (Full) <Radha Rinaldi - Last Filed: 11/20/23 08:08> - Plan Pt seen and examined. I agree with the note by the NATURAL RESOURCES INSTRUCTOR. Will optimize insulin regimen. Syncope is likely due to hyperglycemia. COntinue IVF for SIMON. <Pinky Dick - Last Filed: 11/22/23 22:27>
[2023-11-20] MEDS: TAMSULOSIN 0.4 MG SR CAP PO SCH (08:38)
[2023-11-20] MEDS: ROPINIROLE HCL 1 MG TAB PO SCH (08:39)
[2023-11-20] MEDS: INSULIN LISPRO 100 UNIT/ML SQ SCH (08:39)
[2023-11-20] MEDS ORDERED: MORPHINE 4 MG/ML SYR IV PRN (09:47)
[2023-11-20 11:42] LABS: Specific Gravity 1.023 (1.005-1.030); Urine Bilirubin NEGATIVE (Negative); Urine Blood Negative (Negative); Urine Clarity Clear (Clear); Urine Color Light-Yellow (Yellow); Urine Glucose 4+ (Over) (Negative); Urine Ketones NEGATIVE (Negative); Urine Microscopic Reflex YN NO UMIC; Urine Nitrite NEGATIVE (Negative); Urine Protein NEGATIVE (Negative); Urine Urobilinogen Normal (Normal)
--- NOTE | 2023-11-20 11:57 | P.DS ---
Admission Date: 11/19/23 Discharge Date: 11/20/23 Reason for Admission: Hyperglycemia Brief History of Present Illness: 68 yrs old Male with past medical history hypertension, diabetes, hyperlipidemia who came to ER with generalized weakness and presyncopal episodes started this afternoon. Patient states that he was eating lunch this afternoon when he started feeling a pain in the back of his neck and like he was going to pass out. Denies any chest pain or shortness of breath. Denies any palpitation. Associated with dizziness, weakness. No fever or chills. No sick contacts. Denies any abdominal pain. Denies any dysuria. Hospital Course: On evaluation in the Emergency department, you were found to have a blood sugar of 532 mg/dL. Insulin glargine 20 units was given at bedtime. Labs have normalized this morning. Your hemoglobin A1c is 10.1. It is recommended to follow-up with Dr. Cuadra this week, check blood sugars daily and keep a log to take to him at your visit. <Radha Rinaldi - Last Filed: 11/20/23 11:57> Admission Date: 11/19/23 Discharge Date: 11/20/23 Hospital Course: Pt seen and examined. I agree with the note by the IT TECHNICAL SPECIALIST. Pt needs to be compliant with diabetes regimen at home. A1c is 10.1. Will need insulin 70/30 u BID and follow up with PCP within 1 week. Also exercise to lose weight. <Pinky Dick - Last Filed: 11/20/23 12:24> Disposition: ROUTINE DISCHARGE Discharge Condition: GOOD Vital Signs/Physical Exam: Temp Pulse Resp BP Pulse Ox 97.5 F 73 15 140/67 94 11/20/23 08:11 11/20/23 08:11 11/20/23 08:11 11/20/23 08:11 11/20/23 08:11 General: Alert, In no apparent distress, Oriented x3 HEENT: Atraumatic, Normocephalic Neck: Supple Respiratory: Normal air movement Cardiovascular: Normal pulses, Regular rate/rhythm Capillary refill: <2 Seconds Gastrointestinal: Soft and benign Musculoskeletal: No clubbing Integumentary: No rashes Neurological: Normal speech, Normal affect Lymphatics: No axilla or inguinal lymphadenopathy External genitalia: Deferred Rectal: Deferred Laboratory Data at Discharge: WBC 6.60 thou/uL (4.3-10.9) 11/20/23 06:15 Hgb 15.5 g/dL (13.6-17.9) 11/20/23 06:15 Hct 45.3 % (39.6-49.0) 11/20/23 06:15 Plt Count 223 thou/uL (152-406) 11/20/23 06:15 PT 11.5 SECONDS (9.5-12.5) 11/19/23 16:21 INR 1.05 11/19/23 16:21 APTT 36.0 SECONDS (24.3-36.9) 11/19/23 16:21 Sodium 140 mEq/L (136-145) D 11/20/23 06:15 Potassium 3.6 mEq/L (3.5-5.1) 11/20/23 06:15 BUN 30 mg/dL (7-18) H 11/20/23 06:15 Creatinine 0.81 mg/dL (0.70-1.30) 11/20/23 06:15 Glucose 220 mg/dL (74-106) H 11/20/23 06:15 Magnesium 2.2 mg/dL (1.6-2.4) 11/19/23 16:21 Total Bilirubin 0.7 mg/dL (0.2-1.0) 11/20/23 06:15 AST < 4 U/L (15-37) L 11/20/23 06:15 ALT 25 U/L (16-61) 11/20/23 06:15 Alkaline Phosphatase 76 U/L (45-117) 11/20/23 06:15 <Rinaldi,Radha Barrett - Last Filed: 11/20/23 11:57> Vital Signs/Physical Exam: Temp Pulse Resp BP Pulse Ox 97.5 F 73 15 140/67 94 11/20/23 08:11 11/20/23 08:11 11/20/23 08:11 11/20/23 08:11 11/20/23 08:11 Laboratory Data at Discharge: WBC 6.60 thou/uL (4.3-10.9) 11/20/23 06:15 Hgb 15.5 g/dL (13.6-17.9) 11/20/23 06:15 Hct 45.3 % (39.6-49.0) 11/20/23 06:15 Plt Count 223 thou/uL (152-406) 11/20/23 06:15 PT 11.5 SECONDS (9.5-12.5) 11/19/23 16:21 INR 1.05 11/19/23 16:21 APTT 36.0 SECONDS (24.3-36.9) 11/19/23 16:21 Sodium 140 mEq/L (136-145) D 11/20/23 06:15 Potassium 3.6 mEq/L (3.5-5.1) 11/20/23 06:15 BUN 30 mg/dL (7-18) H 11/20/23 06:15 Creatinine 0.81 mg/dL (0.70-1.30) 11/20/23 06:15 Glucose 220 mg/dL (74-106) H 11/20/23 06:15 Magnesium 2.2 mg/dL (1.6-2.4) 11/19/23 16:21 Total Bilirubin 0.7 mg/dL (0.2-1.0) 11/20/23 06:15 AST < 4 U/L (15-37) L 11/20/23 06:15 ALT 25 U/L (16-61) 11/20/23 06:15 Alkaline Phosphatase 76 U/L (45-117) 11/20/23 06:15 <Pinky Dick - Last Filed: 11/20/23 12:24> Diet: ADA Activity: Ad china <Rinaldi,Radha Barrett - Last Filed: 11/20/23 11:57> <Pinky Dick - Last Filed: 11/20/23 12:24> Home Medications: Carvedilol [Coreg] 25 mg PO BID 11/19/23 Dapagliflozin Propanediol [Farxiga] 10 mg PO DAILY 11/19/23 Isosorbide Mononitrate [Isosorbide Mononitrate ER] 60 mg PO DAILY 11/19/23 Lisinopril/Hydrochlorothiazide [Lisinopril-Hctz 20-12.5 mg Tab] 1 each PO DAILY 11/19/23 Metformin HCl 1,000 mg PO BID 11/19/23 Ropinirole HCl 2 mg PO BID 11/19/23 Spironolactone 25 mg PO DAILY 11/19/23 Tamsulosin [Flomax*] 0.4 mg PO DAILY 11/19/23 glyBURIDE [Glyburide] 10 mg PO BID 11/19/23 lisinopriL [Lisinopril] 2 tab PO BEDTIME 11/19/23 Insulin 70/30 NPH/Reg Human [Novolin 70/30*] 15 unit SQ BID 30 Days #30 ml 11/20/23 New Medications: Insulin 70/30 NPH/Reg Human [Novolin 70/30*] 15 unit SQ BID 30 Days #30 ml Physician Discharge Instructions: On evaluation in the Emergency department, you were found to have a blood sugar of 532 mg/dL. Insulin glargine 20 units was given at bedtime. Labs have normalized this morning. Your hemoglobin A1c is 10.1. It is recommended to follow-up with Dr. Cuadra this week, check blood sugars daily and keep a log to take to him at your visit. Okay to DC IV and DC home Follow-up with primary care provider in 1 to 2 weeks Please call the inpatient unit for any questions or concerns regarding hospital stay Return to the ER for worsening symptoms Followup: Venecia KAUR,Trev Rahman DO [Primary Care Provider] -
[2023-11-20] MEDS ORDERED: PNEUMOCOCCAL VACCINE 0.5 ML IMVAC ONE (12:00)
[2023-11-20 13:36] VITALS: BP 143/84; TEMP 97.6
--- NOTE | 2023-11-20 14:39 | EKG ---
Test Date: 2023-11-19 Test Time: 16:25:42 Sampler And Test Preparer: ELVIA MEASUREMENT RESULTS: Intervals: Rate: 84 [place]: 162 QRSD: 88 QT: 398 QTc: 470 [place]: P: 61 [place]: 162 QRS: -9 T: -10 INTERPRETIVE STATEMENTS: Normal sinus rhythm Cannot rule out Anterior infarct, age undetermined Abnormal ECG Compared to ECG 05/25/2021 09:29:18 Myocardial infarct finding now present Electronically Signed On 11-20-23 14:37:41 CDT by Mayito Mirza
== END 2023-11-20 13:35 | disposition home or self-care (01) ==
LOC: ER 15:12 → ERHOLD 18:04 → 2ND 20:17
PROVIDERS: ADMIT Hospitalist; ATTEND Hospitalist
DX: E11.65 Type 2 diabetes mellitus with hyperglycemia (principal); N17.9 Acute kidney failure, unspecified; I10 Essential (primary) hypertension; E78.5 Hyperlipidemia, unspecified; R53.1 Weakness; R55 Syncope and collapse; Z88.6 Allergy status to analgesic agent
CPT/HCPCS: 93005; 85025 ×2; 80048; 36415; 83735; 85610; 82947 ×4; 80076; 85730; 81003; 83036; 84484; 80053; 70450; 71045; 96375; 96372; 96374; 99284; J1815 ×3; J7050; J7030 ×2; G0378 ×4

== ENCOUNTER 2024-02-17 15:31 | Emergency (ER) | payer OTHER ==
--- OUTSIDE RECORDS SUMMARY | 2024-02-17 15:34 | XMS REPORT | Continuity of Care Document ---
Author Name Unknown Address [address] [place] [address] [facility] Address [address] [place] [address] Care Team Providers Care Asbestos Brake Lining Finisher Name Role Phone Unavailable Unavailable Unavailable Encounters Start Date/Time End Date/Time Encounter Type Admission Type Attending Clinicians Care Facility Care Department Encounter ID Source 2022-11-29 09:05:02 Outpatient [facility] [id number] [facility]
[2024-02-17] MEDS ORDERED: NA CHLORIDE 0.9% 1,000 ML ONE (15:53)
[2024-02-17 15:57] LABS: Absolute Eosinophils 0.1 K/uL (0-0.5); Absolute Lymphocytes (CBC) 1.9 K/uL (0.7-4.9); Absolute Monocytes 0.5 K/uL (0.1-1.3); Absolute Neutrophil 4.4 K/uL (1.8-8.0); Basophils % 0.4 % (0-1.3); Eosinophils % 1.6 % (0-4.4); Hemoglobin 15.5 g/dL (13.6-17.9); Lymphocytes % 27.3 % (15.3-44.8); MCH 30.4 pg (27.0-35.0); MCHC 33.6 g/dL (32.0-36.0); MCV 90.4 fL (80-100); MPV 8.2 fL (7.6-11.3); Monocytes % 7.4 % (3.3-12.3); Neutrophils % 63.3 % (41.7-73.7); Nucleated Red Blood Cells % 0.1 % (0-0); Platelets 234 thou/uL (152-406); RBC Red Blood Cell Count 5.09 M/uL (4.33-5.43); Red Cell Distribution Width 13.8 % (12.1-15.2)
[2024-02-17 16:16] LABS: ALT/SGPT 21 U/L (16-61); Albumin 3.8 g/dL (3.4-5.0); Albumin/Globulin Ratio 1.3 (1.1-1.8); Alkaline Phosphatase 54 U/L (45-117); Anion Gap 10.7 mEq/L (5.0-15.0); BUN Blood Urea Nitrogen 31 mg/dL (7-18); Bicarbonate 25 mEq/L (21-32); Bilirubin Direct 0.3 mg/dL (0-0.2); Bilirubin Indirect, Calculated 0.6 mg/dL (0.2-0.8); Bilirubin Total 0.9 mg/dL (0.2-1.0); Creatine Phosphokinase 39 U/L (39-308); Glomerular Filtration Rate 71 ml/min (=/>90); Glucose Level 167 mg/dL (74-106); Magnesium 2.4 mg/dL (1.6-2.4); Potassium 3.7 mEq/L (3.5-5.1); Protein, Total 6.8 g/dL (6.4-8.2); Sodium Level 140 mEq/L (136-145); Troponin High Sensitivity 5.2 pg/mL (<58.9)
[2024-02-17 16:18] LABS: AST/SGOT < 10 U/L (15-37)
--- NOTE | 2024-02-17 17:06 | ER ---
Nurse's Notes [facility] Name: Geovani Dickens Age: 68 yrs Sex: Male : 1955 Arrival Date: 02/17/2024 Time: 15:31 Bed 13 Private MD: Diagnosis: Dehydration Presentation: 02/16 15:35 Chief complaint: EMS states: Was working outside and suddenly started experiencing rs5 blurry vision. Denies blurry vision, chest pain or SOB at this moment. Coronavirus screen: At this time, the client does not indicate any symptoms associated with coronavirus-19. Ebola Screen: No symptoms or risks identified at this time. Initial Sepsis Screen: Does the patient meet any 2 criteria? No. Patient's initial sepsis screen is negative. Does the patient have a suspected source of infection? No. Patient's initial sepsis screen is negative. Risk Assessment: Do you want to hurt yourself or someone else? Patient reports no desire to harm self or others. Onset of symptoms was February 17, 2024. 15:35 Method Of Arrival: EMS: [facility] rs5 15:35 Acuity: LASHELL 3 rs5 Triage Assessment: 15:37 General: Appears in no apparent distress. comfortable, Behavior is calm, cooperative. rs5 Pain: Denies pain. Historical: - Allergies: 15:37 Aleve; rs5 15:37 Naproxen; rs5 - PMHx: 15:37 Hypertensive disorder; NIDDM; rs5 - PSHx: 15:37 None; rs5 - Immunization history:: Adult Immunizations up to date. - Infectious Disease History:: Denies. - Social history:: Smoking status: Patient denies any tobacco usage or history of. - Family history:: not pertinent. Screenin:36 [facility] ED Fall Risk Assessment (Adult) History of falling in the last 3 months, rs5 including since admission No falls in past 3 months (0 pts) Confusion or Disorientation No (0 pts) Intoxicated or Sedated No (0 pts) Impaired Gait No (0 pts) Mobility Assist Device Used No (0 pt) Altered Elimination No (0 pt) Score/Fall Risk Level 0 - 2 = Low Risk Oriented to surroundings, Maintained a safe environment. [facility] ED Fall Risk Assessment (Adult). [facility] Fall Risk Assessment (Adult) History of falling in the last 3 months, including since admission. Abuse screen: Denies threats or abuse. Nutritional screening: No deficits noted. Tuberculosis screening: No symptoms or risk factors identified. Assessment: 15:36 General: Appears in no apparent distress. comfortable, Behavior is calm, cooperative. rs5 15:36 Pain: Denies pain. Neuro: Level of Consciousness is awake, alert, obeys commands, rs5 Oriented to person, place, time, situation, Denies blurred vision. Cardiovascular: Patient's skin is warm and dry. Respiratory: Airway is patent Respiratory effort is even, unlabored, Respiratory pattern is regular, symmetrical. GI: Abdomen is round non-distended, Abd is soft and non tender X 4 quads. : No signs and/or symptoms were reported regarding the genitourinary system. EENT: No signs and/or symptoms were reported regarding the EENT system. Derm: Skin is intact, Skin is pink, warm \T\ dry. Musculoskeletal: Range of motion: intact in all extremities. 16:50 Reassessment: Patient and/or family updated on plan of care and expected duration. Pain rs5 level reassessed. Patient is alert, oriented x 3, equal unlabored respirations, skin warm/dry/pink. 17:15 Reassessment: Patient and/or family updated on plan of care and expected duration. Pain rs5 level reassessed. Patient is alert, oriented x 3, equal unlabored respirations, skin warm/dry/pink. Vital Signs: 15:35 BP 115 / 57; Pulse 81; Resp 17; Temp 98(O); Pulse Ox 98% on R/A; rs5 16:51 BP 106 / 56; Pulse 77; Resp 17; Pulse Ox 99% on R/A; rs5 17:15 BP 110 / 62; Pulse 70; Resp 17; Pulse Ox 99% on R/A; rs5 ED Course: 15:35 Patient arrived in ED. rs5 15:35 Jozef Edwards MD is Attending Physician. rt 15:37 Triage completed. rs5 15:40 Patient has correct armband on for positive identification. Bed in low position. Call rs5 light in reach. Side rails up X2. 15:46 Brady Aguilera RN is Primary Nurse. rs5 15:50 Inserted saline lock: 20 gauge in right antecubital area, using aseptic technique. rs5 16:20 Initial lab(s) drawn, by me, sent to lab. oh1 16:21 EKG done, by field service technician poultry. reviewed by Jozef Edwards MD. oh1 16:52 No provider procedures requiring assistance completed. rs5 17:19 IV discontinued, intact, bleeding controlled, No redness/swelling at site. Pressure rs5 dressing applied. Administered Medications: 15:50 Drug: NS 0.9% IV 1000 ml IV at 1 bolus Per protocol; 1000 mL bolus Route: IV; Rate: 1 rs5 bolus; Site: right antecubital; 16:05 Follow up: Response: No adverse reaction rs5 16:55 Follow up: IV Status: Completed infusion; IV Intake: 1000ml rs5 Medication: 16:51 VIS not applicable for this client. rs5 Intake: 16:55 IV: 1000ml; Total: 1000ml. rs5 Outcome: 17:06 Discharge ordered by MD. rt 17:19 Discharged to home ambulatory, rs5 17:19 Condition: stable rs5 17:19 Discharge instructions given to patient, family, Instructed on discharge instructions, follow up and referral plans. Demonstrated understanding of instructions, follow-up care, 17:20 Patient left the ED. rs5 Signatures: Jozef Edwards MD MD rt Brady Aguilera RN RN rs5 Anamaria Washburn oh1 Corrections: (The following items were deleted from the chart) 16:49 16:20 Inserted saline lock: 20 gauge in right antecubital area, using aseptic rs5 technique. oh1 16:50 15:36 Neuro: Level of Consciousness is awake, alert, obeys commands, Oriented to rs5 person, place, time, situation, rs5
--- NOTE | 2024-02-17 17:06 | EDPHYS ---
Physician Documentation [facility] Name: Geovani Dickens Age: 68 yrs Sex: Male : 1955 Arrival Date: 02/17/2024 Time: 15:31 Bed 13 Private MD: ED Physician Jozef Edwards HPI: 02/16 20:02 This 68 yrs old Male presents to ER via EMS with complaints of Blurred Vision. rt 20:02 Patient presents to the ED with reported dehydration, blurred vision, reported low rt blood pressures to about 90s over 50s at home. Patient states this occurred after he was working outside in the heat. States that the symptoms have improved after drinking fluids, eating salty foods. States that he is back to baseline, has no complaints currently. Symptoms are moderate in severity, no other aggravating or alleviating factors.. Historical: - Allergies: 15:37 Aleve; rs5 15:37 Naproxen; rs5 - PMHx: 15:37 Hypertensive disorder; NIDDM; rs5 - PSHx: 15:37 None; rs5 - Immunization history:: Adult Immunizations up to date. - Infectious Disease History:: Denies. - Social history:: Smoking status: Patient denies any tobacco usage or history of. - Family history:: not pertinent. ROS: 20:02 Constitutional: Negative for fever, chills, and weight loss, Cardiovascular: Negative rt for chest pain, palpitations, and edema, Respiratory: Negative for shortness of breath, cough, wheezing, and pleuritic chest pain, Abdomen/GI: Negative for abdominal pain, nausea, vomiting, diarrhea, and constipation, MS/Extremity: Negative for injury and deformity, Skin: Negative for injury, rash, and discoloration, 20:02 Eyes: Positive for blurry vision, Negative for vision loss, 20:02 Neuro: Positive for near syncope, Negative for loss of consciousness, Exam: 20:02 Constitutional: This is a well developed, well nourished patient who is awake, alert, rt and in no acute distress. Head/Face: Normocephalic, atraumatic. Chest/axilla: Normal chest wall appearance and motion. Nontender with no deformity. No lesions are appreciated. Cardiovascular: Regular rate and rhythm with a normal S1 and S2. No gallops, murmurs, or rubs. Normal PMI, no JVD. No pulse deficits. Respiratory: Lungs have equal breath sounds bilaterally, clear to auscultation and percussion. No rales, rhonchi or wheezes noted. No increased work of breathing, no retractions or nasal flaring. Abdomen/GI: Soft, non-tender, with normal bowel sounds. No distension or tympany. No guarding or rebound. No evidence of tenderness throughout. Skin: Warm, dry with normal turgor. Normal color with no rashes, no lesions, and no evidence of cellulitis. MS/ Extremity: Pulses equal, no cyanosis. Neurovascular intact. Full, normal range of motion. Neuro: Awake and alert, GCS 15, oriented to person, place, time, and situation. Cranial nerves II-XII grossly intact. Motor strength 5/5 in all extremities. Sensory grossly intact. Cerebellar exam normal. Normal gait. 20:02 ECG was reviewed by the Attending Physician. Vital Signs: 15:35 BP 115 / 57; Pulse 81; Resp 17; Temp 98(O); Pulse Ox 98% on R/A; rs5 16:51 BP 106 / 56; Pulse 77; Resp 17; Pulse Ox 99% on R/A; rs5 17:15 BP 110 / 62; Pulse 70; Resp 17; Pulse Ox 99% on R/A; rs5 MDM: 15:37 Patient medically screened. rt 20:02 Differential Diagnosis Dehydration, electrolyte disturbance, dysrhythmia. Data rt reviewed: vital signs, nurses notes, lab test result(s), EKG. Consideration of Admission/Observation Escalation of care including admission/observation considered. Symptoms resolved, stable vital signs, labs, no indications for admission at this time, return precautions discussed.. I considered the following discharge prescriptions or medication management in the emergency department Medications were administered in the Emergency Department. See MAR. Test considered but Not performed: CT: No head trauma, neurodeficits, CT scan of the head not indicated. Care significantly affected by the following chronic conditions: Diabetes, Hypertension. Counseling: I had a detailed discussion with the patient and/or guardian regarding the historical points, exam findings, and any diagnostic results supporting the discharge/admit diagnosis, lab results, the need for outpatient follow up, to return to the emergency department if symptoms worsen or persist or if there are any questions or concerns that arise at home. Response to treatment: the patient's symptoms have resolved after treatment. 02/16 15:45 Order name: Basic Metabolic Panel; Complete Time: 16:23 rt 02/16 15:45 Order name: CBC with Diff; Complete Time: 16:23 rt 02/16 15:45 Order name: LFT's; Complete Time: 16:23 rt 02/16 15:45 Order name: Magnesium; Complete Time: 16:23 rt 02/16 15:45 Order name: Troponin HS; Complete Time: 16:23 rt 02/16 15:45 Order name: CPK; Complete Time: 16:23 rt 02/16 15:45 Order name: EKG; Complete Time: 15:46 rt 02/16 15:45 Order name: Cardiac monitoring; Complete Time: 16:20 rt 02/16 15:45 Order name: EKG - Nurse/Tech; Complete Time: 16:20 rt 02/16 15:45 Order name: IV Saline Lock; Complete Time: 16:19 rt 02/16 15:45 Order name: Labs collected and sent; Complete Time: 16:20 rt 02/16 15:45 Order name: O2 Per Protocol; Complete Time: 16:53 rt 02/16 15:45 Order name: O2 Sat Monitoring; Complete Time: 16:53 rt EC:02 Rate is 77 beats/min. Rhythm is regular, Normal Sinus Rhythm with No ectopy. QRS [place] rt is Normal. MO interval is normal. QRS interval is normal. QT interval is normal. No Q waves. No ST changes noted. Interpreted by me. Administered Medications: 15:50 Drug: NS 0.9% IV 1000 ml IV at 1 bolus Per protocol; 1000 mL bolus Route: IV; Rate: 1 rs5 bolus; Site: right antecubital; 16:05 Follow up: Response: No adverse reaction rs5 16:55 Follow up: IV Status: Completed infusion; IV Intake: 1000ml rs5 Disposition Summary: 02/17/24 17:06 Discharge Ordered Notes: Location: Home rt Problem: new rt Symptoms: have improved rt Condition: Stable rt Diagnosis - Dehydration rt Followup: rt - With: Private Physician - When: 2 - 3 days - Reason: Discharge Instructions: - Discharge Summary Sheet rt - Dehydration, Adult rt Forms: - Medication Reconciliation Form rt - Antibiotic Education rt - Prescription Opioid Use rt - Patient Portal Instructions rt - Leadership Thank You Letter rt Signatures: Dispatcher [employer] EDMS Elin Pressley, CUSTOMER SOLUTIONS REPRESENTATIVE CUSTOMER [employer]UTIONS REPRESENTATIVE [id number] Jozef Edwards MD MD rt Brady Aguilera, RN RN rs5 Corrections: (The following items were deleted from the chart) 15:46 15:46 BASIC METABOLIC PANEL+C.LAB.BRZ ordered. EDMS EDMS 15:46 15:46 CBC+H.LAB.BRZ ordered. EDMS EDMS 15:46 15:46 HEPATIC FUNCTION+C.LAB.BRZ ordered. EDMS EDMS 15:46 15:46 MAGNESIUM+C.LAB.BRZ ordered. EDMS EDMS 15:46 15:46 Troponin High Sensitivity+C.LAB.BRZ ordered. EDMS EDMS 15:46 15:46 CREATINE PHOSPHOKINASE+C.LAB.BRZ ordered. EDMS EDMS
[2024-02-17 18:31] VITALS: TEMP 98
[2024-02-17 18:45] VITALS: BP 106/56; O2SAT 99
--- NOTE | 2024-02-19 17:03 | EKG ---
Test Date: 2024-02-17 Test Time: 15:56:39 Wood Barker: ROGELIO MEASUREMENT RESULTS: Intervals: Rate: 77 UT: 166 QRSD: 90 QT: 416 QTc: 470 [place]: P: 43 UT: 166 QRS: -10 T: 1 INTERPRETIVE STATEMENTS: Normal sinus rhythm Inferior infarct, age undetermined Abnormal ECG Compared to ECG 11/19/2023 16:25:42 No significant changes Electronically Signed On 02-19-24 16:58:23 CDT by Mayito Mirza
== END 2024-02-17 17:20 | disposition home or self-care (01) ==
LOC: ER 15:31
DX: E86.0 Dehydration (principal)
CPT/HCPCS: 93005; 85025; 80048; 36415; 83735; 82550; 80076; 84484; 96360; 99284; J7030